=== PATIENT | male | born 1975 | race American Indian/Alaskan Native ===

== ENCOUNTER 2018-08-26 15:56 | Emergency (ER) | payer SELFPAY ==
[2018-08-26 17:52] VITALS: BP 135/90
--- NOTE | 2018-08-26 21:48 | Emergency Department Report ---
ED General Adult HPI - General Chief complaint: Skin/Abscess/Foreign Body Stated complaint: SPIDER BITE Time Seen by Provider: 08/26/18 21:30 Source: patient Mode of arrival: Ambulatory Limitations: No Limitations - History of Present Illness Initial comments: [id number] [place] male presents emergency department complaining of recurrent skin wounds to his abdomen and suprapubic region that has been off and on for the past several months. Had a reemergence of the wounds about one week ago and he has a little painful area to the right inguinal and suprapubic region which has been draining some 6 some clear fluid. Tender to touch. Denies any fever, chills, sweats. No testicular swelling or pain. No penile drainage. States that he's been having the problem first place over the body, but but originated in the lower abdomen and suprapubic region. To his knowledge, he does not have a history of MRSA and does not have any known contact -: Gradual Radiation: non-radiation Quality: sharp Consistency: constant Improves with: none Worsens with: none Associated Symptoms: denies: chest pain, cough, diaphoresis, fever/chills, loss of appetite, nausea/vomiting, shortness of breath, syncope, other Treatments Prior to Arrival: none - Related Data Previous Rx's Medication Instructions Recorded Last Taken Type Ketorolac [Toradol] 10 mg PO Q6H PRN #15 tablet 08/26/18 Unknown Rx Sulfamethoxazole/Trimethoprim 2 each PO BID #40 tablet 08/26/18 Unknown Rx [Bactrim DS TAB] cephALEXin [Keflex] 500 mg PO Q6HR #40 capsule 08/26/18 Unknown Rx Allergies Allergy/AdvReac Type Severity Reaction Status Date / Time No Known Allergies Allergy Unverified 08/26/18 16:27 ED Review of Systems ROS: Stated complaint: SPIDER BITE Other details as noted in HPI Constitutional: denies: chills, fever Eyes: denies: eye pain, eye discharge, vision change ENT: denies: ear pain, throat pain Respiratory: denies: cough, shortness of breath, wheezing Cardiovascular: denies: chest pain, palpitations Endocrine: no symptoms reported Gastrointestinal: denies: abdominal pain, nausea, diarrhea Genitourinary: denies: urgency, dysuria Musculoskeletal: denies: back pain, joint swelling, arthralgia Skin: change in color. denies: rash, lesions Neurological: denies: headache, weakness, paresthesias Psychiatric: denies: anxiety, depression Hematological/Lymphatic: denies: easy bleeding, easy bruising ED Past Medical Hx - Past Medical History Previous Medical History?: No - Surgical History Past Surgical History?: No - Social History Smoking Status: Current Every Day Smoker Substance Use Type: Alcohol, Marijuana - Medications Home Medications: Home Medications Medication Instructions Recorded Confirmed Last Taken Type Ketorolac [Toradol] 10 mg PO Q6H PRN #15 tablet 08/26/18 Unknown Rx Sulfamethoxazole/Trimethoprim 2 each PO BID #40 tablet 08/26/18 Unknown Rx [Bactrim DS TAB] cephALEXin [Keflex] 500 mg PO Q6HR #40 capsule 08/26/18 Unknown Rx ED Physical Exam - General Limitations: No Limitations General appearance: alert, in no apparent distress - Head Head exam: Present: atraumatic, normocephalic - Eye Eye exam: Present: normal appearance, PERRL, EOMI, scleral icterus - ENT ENT exam: Present: normal exam, mucous membranes moist - Neck Neck exam: Present: normal inspection, full ROM - Respiratory Respiratory exam: Present: normal lung sounds bilaterally. Absent: respiratory distress, wheezes, rales - Cardiovascular Cardiovascular Exam: Present: regular rate, normal rhythm. Absent: systolic murmur, diastolic murmur, rubs, gallop - GI/Abdominal GI/Abdominal exam: Present: soft, normal bowel sounds - Rectal Rectal exam: Present: deferred - Extremities Exam Extremities exam: Present: normal inspection - Back Exam Back exam: Present: normal inspection. Absent: CVA tenderness (R), CVA tenderness (L), muscle spasm - Neurological Exam Neurological exam: Present: alert, oriented X3, CN II-XII intact, normal gait - Psychiatric Psychiatric exam: Present: normal affect, normal mood - Skin Skin exam: Present: warm, dry, intact, normal color, other (has indurated areas to the upper suprapubic region and the area of her hair fall to some scant serous drainage. No fluctuance noted. No lymphangitis. 5. Areas same region similar presentation to a smaller scale. Has some age varying scabs and healed wounds to the lower abdomen. She states that the same as the suprapubic region about a week ago. No cellulitis is appreciated. No lymphadenopathy.). Absent: rash, cyanosis, diaphoretic, erythema, petechiae, pallor, abrasion ED Course Vital Signs 08/26/18 16:24 Temperature 98.6 F Pulse Rate 91 H Respiratory 18 Rate Blood Pressure 135/90 O2 Sat by Pulse 95 Oximetry ED Medical Decision Making - Medical Decision Making Discussion Mr. Chu than that progression of MRSA and also the treatment protocol. Also advised him the need for aggressive base aseptic management on his behalf. Advised him with utilization of antimicrobial soaps so as well as oral atomized in the area. Primary care provider to manage his issue. I told him it may be necessary for him to treat his nasal cavity as well as he may be host for MRSA Critical care attestation.: If time is entered above; I have spent that time in minutes in the direct care of this critically ill patient, excluding procedure time. ED Disposition Clinical Impression: Skin infection, bacterial Disposition: DC-01 TO HOME OR SELFCARE Is pt being admited?: No Does the pt Need Aspirin: No Condition: Stable Instructions: Methicillin Resistant Staphylococcus Aureus (ED) Prescriptions: cephALEXin [Keflex] 500 mg PO Q6HR #40 capsule Ketorolac [Toradol] 10 mg PO Q6H PRN #15 tablet PRN Reason: Pain Sulfamethoxazole/Trimethoprim [Bactrim DS TAB] 2 each PO BID #40 tablet Referrals: [facility] [Provider Group] - 3-5 Days MAICO LEAHY MD [Primary Care Provider] - 3-5 Days
== END 2018-08-26 21:50 | disposition home or self-care (01) ==
LOC: ED 15:56
DX: L98.9 Disorder of the skin and subcutaneous tissue, unspecified (principal); L08.9 Local infection of the skin and subcutaneous tissue, unspecified; B96.89 Other specified bacterial agents as the cause of diseases classified elsewhere; F17.200 Nicotine dependence, unspecified, uncomplicated; F12.10 Cannabis abuse, uncomplicated
CPT/HCPCS: 99282